=== PATIENT | female | born 2005 | race Hispanic/Latino ===

== ENCOUNTER 2024-03-18 17:17 | Emergency (ER) | payer BC ==
--- OUTSIDE RECORDS SUMMARY | 2024-03-18 17:21 | XMS REPORT | Continuity of Care Document ---
Author Name Unknown Address [address] [place] [address] 1 [address] [place], [place] [address] [place] [address] [facility] Address [address] [facility] 1 [address] [place] [address] Care Team Providers Care Supervisor [employer] Name Role Phone PCP, PATIENT DOES NOT HAVE A Primary Care Physic nikki Unavailable LISA WESLEY Attending Clinician Unavailable Melvin_Mariam Attending Clinician Unavailable Adalgisa_Angelica Attending Clinician Unavailable JENNIFER_ANTONIETA Attending Clinician Unavailab le Melvin_Mariam Admitting Clinician Unavailable Jessicawhector_Angelica Admitting Clinician Unavailable JENNIFER_ANTONIETA Admitting Clinician Unavailab le Payers Payer Name Policy Type Policy Number Effective Date Expirati on Date Source [facility] [id number] 2018 00:00[facility] ([facility] [id number] 2018 00:00:00 Problems Condition Name Condition Details Condition Category Status Onset Date Resolution Date Last Treatment Date Treating Clinician Comments Source Moderate recurrent major depression Moderate Recurrent Major Depression Problem Active 02-21 00:00: 00 [facility] Attention deficit hyperactiv ity disorder Attention Deficit Hyperactiv ity Disorder Problem Active 7- 00:00: 00 [facility] Allergies, Adverse Reactions, Alerts Allergy Name Allergy Type Status Severity Reaction(s) Onset Date Inactive Date Treating Clinician Comments Source AMOXICIL RAY DRUG INGREDI Active Unknown-Cmnt - 00:00: 00 [facility] Amoxicil ray Allergy to substanc e Active Moderate severity Rash 1- 00:00: 00 [facility] NO KNOWN ALLERGIE S Drug Class Active [facility] Social History Smoking Status Start Date Stop Date Source Never Smoker [facility] Medications Ordered Medication Name Filled Medication Name Start Date Stop Date Current Medication? Ordering Clinician Indication Dosage Frequency Signature (SIG) Comments Components Source Lo Loestrin Fe 1 mg-10 mcg (24)/10 mcg (2) tablet TAKE 1 TABLET BY MOUTH EVERY DAY Lo Loestrin Fe 1 mg-10 mcg (24)/10 mcg (2) tablet TAKE 1 TABLET BY MOUTH EVERY DAY No 1 Q1D Lo Loestrin Fe 1 mg-10 mcg (24)/10 mcg (2) tablet TAKE 1 TABLET BY MOUTH EVERY DAY [facility] sertraline 100 mg tablet TAKE 1 TABLET BY MOUTH EVERY DAY IN THE MORNING sertraline 100 mg tablet TAKE 1 TABLET BY MOUTH EVERY DAY IN THE MORNING No sertraline 100 mg tablet TAKE 1 TABLET BY MOUTH EVERY DAY IN THE MORNING [facility] bupropion HCl XL 150 mg 24 hr tablet, extended release TAKE 1 TABLET BY MOUTH DAILY bupropion HCl XL 150 mg 24 hr tablet, extended release TAKE 1 TABLET BY MOUTH DAILY No bupropion HCl XL 150 mg 24 hr tablet, extended release TAKE 1 TABLET BY MOUTH DAILY [facility] lisdexamfet amine 30 mg capsule Take 1 capsule every day by oral route in the morning. lisdexamfet amine 30 mg capsule Take 1 capsule every day by oral route in the morning. No lisdexamfe tamine 30 mg capsule Take 1 capsule every day by oral route in the morning. [facility] Deconex DMX 10 mg-17.5 mg-400 mg tablet TAKE 1 TABLET BY MOUTH EVERY 4 TO 6 HOURS NEEDED FOR COUGH OR CONGESTION Deconex DMX 10 mg-17.5 mg-400 mg tablet TAKE 1 TABLET BY MOUTH EVERY 4 TO 6 HOURS NEEDED FOR COUGH OR CONGESTION No Deconex DMX 10 mg-17.5 mg-400 mg tablet TAKE 1 TABLET BY MOUTH EVERY 4 TO 6 HOURS NEEDED FOR COUGH OR CONGESTION [facility] ondansetron 4 mg disintegrat ing tablet DISSOLVE 1 TABLET ON THE TONGUE EVERY 8 HOURS NEEDED ondansetron 4 mg disintegrat ing tablet DISSOLVE 1 TABLET ON THE TONGUE EVERY 8 HOURS NEEDED No ondansetro n 4 mg disintegra ting tablet DISSOLVE 1 TABLET ON THE TONGUE EVERY 8 HOURS NEEDED [facility] Program Immunizations Ordered Immunization Name Filled Immunization Name Date Status Comments Source influenza, injectable, quadrivalent, preservative free influenza, injectable, quadrivalent, preservative free Unknown [facility] meningococcal B, recombinant meningococcal B, recombinant Unknown Completed [facility] MCV4, unspecified formulation MCV4, unspecified formulation Unknown Completed [facility] influenza, injectable, quadrivalent influenza, injectable, quadrivalent Unknown Completed [facility] HPV9 HPV9 Unknown Completed [facility] Td(adult) unspecified formulation - ML Td(adult) unspecified formulation - ML Unknown Completed [facility] Tdap Tdap Unknown Completed [facility] influenza, live, intranasal, quadrivalent - ML influenza, live, intranasal, quadrivalent - ML Unknown Completed [facility] varicella varicella Unknown Completed [facility] IPV IPV Unknown Completed [facility] MMR MMR Unknown Completed [facility] DTaP, 5 pertussis antigens DTaP, 5 pertussis antigens Unknown Completed [facility] Hep A, ped/adol, 2 dose Hep A, ped/adol, 2 dose Unknown Completed [facility] pneumococcal conjugate PCV 7 pneumococcal conjugate PCV 7 Unknown Completed [facility] Hib (PRP-T) Hib (PRP-T) Unknown Completed [facility] DTaP-Hep B-IPV DTaP-Hep B-IPV Unknown [facility] Hep B, adolescent or pediatric Hep B, adolescent or pediatric Unknown Completed [facility] Vital Signs Vital Name Observation Time Observation Value Comments S ource BP Systolic 2023-08-29 00:00:00 139 mm[Hg] [facility] Height 2023-08-29 00:00:00 62 [in_i] [facility] BMI (Body Mass Index) 2023-08-29 00:00:00 28.9 kg/m2 [facility] Body Weight 2023-08-29 00:00:00 158 [lb_av] [facility] BP Diastolic 2023-08-29 00:00:00 81 mm[Hg] [facility] Height 2023-03-30 00:00:00 62 [in_i] [facility] BP Systolic 2023-03-30 00:00:00 133 mm[Hg] [facility] BP Diastolic 2023-03-30 00:00:00 77 mm[Hg] [facility] BMI (Body Mass Index) 2023-03-30 00:00:00 27.6 kg/m2 [facility] Body Weight 2023-03-30 00:00:00 151 [lb_av] [facility] BP Diastolic 2023-01-26 00:00:00 83 mm[Hg] [facility] Height 2023-01-26 00:00:00 62 [in_i] [facility] BMI (Body Mass Index) 2023-01-26 00:00:00 26.2 kg/m2 [facility] BP Systolic 2023-01-26 00:00:00 143 mm[Hg] [facility] Body Weight 2023-01-26 00:00:00 143 [lb_av] [facility] BP Diastolic 2022-12-22 00:00:00 73 mm[Hg] [facility] Height 2022-12-22 00:00:00 62 [in_i] [facility] BMI (Body Mass Index) 2022-12-22 00:00:00 26.5 kg/m2 [facility] BP Systolic 2022-12-22 00:00:00 117 mm[Hg] [facility] Body Weight 2022-12-22 00:00:00 145 [lb_av] [facility] BP Diastolic 2022-07-07 00:00:00 65 mm[Hg] [facility] Height 2022-07-07 00:00:00 62 [in_i] [facility] BMI (Body Mass Index) 2022-07-07 00:00:00 24.1 kg/m2 [facility] BP Systolic 2022-07-07 00:00:00 111 mm[Hg] [facility] Body Weight 2022-07-07 00:00:00 2112 [oz_av] [facility] BP Diastolic 2022-04-13 00:00:00 79 mm[Hg] [facility] Height 2022-04-13 00:00:00 62 [in_i] [facility] BMI (Body Mass Index) 2022-04-13 00:00:00 24.1 kg/m2 [facility] BP Systolic 2022-04-13 00:00:00 122 mm[Hg] [facility] Body Weight 2022-04-13 00:00:00 132 [lb_av] [facility] BP Diastolic 2022-04-11 00:00:00 51 mm[Hg] [facility] Height 2022-04-11 00:00:00 62 [in_i] [facility] BMI (Body Mass Index) 2022-04-11 00:00:00 24.3 kg/m2 [facility] BP Systolic 2022-04-11 00:00:00 111 mm[Hg] [facility] Body Weight 2022-04-11 00:00:00 2128 [oz_av] [facility] BP Diastolic 2022-02-02 00:00:00 82 mm[Hg] [facility] Height 2022-02-02 00:00:00 62 [in_i] [facility] BMI (Body Mass Index) 2022-02-02 00:00:00 21.8 kg/m2 [facility] BP Systolic 2022-02-02 00:00:00 123 mm[Hg] [facility] Body Weight 2022-02-02 00:00:00 1904 [oz_av] [facility] BP Diastolic 2021-09-08 00:00:00 66 mm[Hg] [facility] Height 2021-09-08 00:00:00 61 [in_i] [facility] BMI (Body Mass Index) 2021-09-08 00:00:00 22.5 kg/m2 [facility] BP Systolic 2021-09-08 00:00:00 111 mm[Hg] [facility] Body Weight 2021-09-08 00:00:00 1904 [oz_av] [facility] BP Diastolic 2021-05-04 00:00:00 85 mm[Hg] [facility] Height 2021-05-04 00:00:00 63 [in_i] [facility] BMI (Body Mass Index) 2021-05-04 00:00:00 22.7 kg/m2 [facility] BP Systolic 2021-05-04 00:00:00 124 mm[Hg] [facility] Body Weight 2021-05-04 00:00:00 2048 [oz_av] [facility] Encounters Start Date/Time End Date/Time Encounter Type Admission Type Attending [facility] Care Facility Care Department Encounter ID Source 2024-03-18 15:40:00 2024-03-18 15:40:00 Outpatient LISA GALLARDO [facility] [id number] [facility] 2024-02-27 00:00:00 2024-02-27 00:00:00 Juan Pablo Shankar MD: [address] [place] [address] , Ph. [phone] --2007 [facility] [id number] [facility] 2023-11-28 00:00:00 2023-11-28 00:00:00 Juan Pablo Shankar MD: [address] [address] , Ph. [phone]) --2007 [facility] [id number] [facility] 2023-10-28 00:00:00 2023-10-28 00:00:00 Outpatient Ryman_Erin [facility] [id number] [facility] 2023-09-25 00:00:00 2023-09-25 00:00:00 Outpatient Ryman_Josein [facility] [id number] [facility] 2023-09-21 00:00:00 2023-09-21 00:00:00 Outpatient Ryman_Josein [facility] [id number] [facility] 2023-08-29 00:00:00 2023-08-29 00:00:00 Juan Pablo Shankar MD: [address] [place] [address] , Ph. ([phone]) --2007 [facility] [id number] [facility] 2023-08-28 00:00:00 2023-08-28 00:00:00 Outpatient Ryman_Erin [facility] [id number] [facility] 2023-05-30 00:00:00 2023-05-30 00:00:00 Juan Pablo Shankar MD: [address], [place] [address] , Ph. [phone] [facility] - [facility] - [facility] B[facility] [id number] [facility] 2023-05-28 00:00:00 2023-05-28 00:00:00 Outpatient Ryman_Erin [facility] [id number] [facility] 2023-05-28 00:00:00 2023-05-28 00:00:00 Outpatient Ryman_Erin [facility] [id number] [facility] 2023-03-30 00:00:00 2023-03-30 00:00:00 Outpatient Ryman_Erin [facility] [id number] [facility] 2023-03-30 00:00:00 2023-03-30 00:00:00 Outpatient Ryman_Erin [facility] [id number] [facility] 2023-03-30 00:00:00 2023-03-30 00:00:00 Lanie Mata, RESOLUTION EXPERT: [address], [place] [address] , Ph. 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 [phone] [facility] B[facility] [id number] [facility] 2023-01-24 00:00:00 2023-01-24 00:00:00 Outpatient Ryman_Erin [facility] [id number] [facility] 2023-01-24 00:00:00 2023-01-24 00:00:00 Outpatient Ryman_Erin [facility] [id number] [facility] 2023-01-24 00:00:00 2023-01-24 00:00:00 Outpatient Ryman_Erin [facility] [id number] [facility] 2023-01-02 00:00:00 2023-01-02 00:00:00 Outpatient Ryman_Erin [facility] [id number] [facility] 2023-01-01 00:00:00 2023-01-01 00:00:00 Outpatient Ryman_Erin [facility] [id number] [facility] 2022-12-22 00:00:00 2022-12-22 00:00:00 Outpatient Ryman_Erin [facility] [id number] [facility] 2022-12-22 00:00:00 2022-12-22 00:00:00 Outpatient Ryman_Erin [facility] [id number] [facility] 2022-12-22 00:00:00 2022-12-22 00:00:00 Juan Pablo Shankar MD: [address], [place] [address] , Ph. [phone] [facility] [place] [facility] - [facility] B.[facility] [id number] [facility] 2022-12-20 00:00:00 2022-12-20 00:00:00 Outpatient Rynicole_in [facility] [id number] [facility] 2022-12-16 00:00:00 2022-12-16 00:00:00 Outpatient Rynicole_in [facility] [id number] [facility] 2022-11-10 00:00:00 2022-11-10 00:00:00 Outpatient Melvin_in [facility] [id number] [facility] 2022-07-08 00:00:00 2022-07-08 00:00:00 Outpatient Ugwuzor_Chi nyere [facility] [id number] [facility] 2022-07-07 00:00:00 2022-07-07 00:00:00 Outpatient Ugwuzor_Chi nyere [facility] [id number] [facility] 2022-07-07 00:00:00 2022-07-07 00:00:00 Mariam Charles MSN: [address], [place] [address] , Ph. [facility] [place] [facility] - [facility] [id number] [facility] 2022-04-13 00:00:00 2022-04-13 00:00:00 Outpatient Ugwuzor_Chi nyere [facility] [id number] [facility] 2022-04-13 00:00:00 2022-04-13 00:00:00 Lanie Mata, RESOLUTION EXPERT: [address], [place] [address] , Ph. 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 [facility] - [facility] [facility] - [facility] Pediatric [id number] [facility] 2022-02-15 12:08:00 2022-02-15 12:08:00 Outpatient Ugwuzor_Chi nyere [facility] [id number] [facility] 2022-02-14 12:55:00 2022-02-14 12:55:00 Outpatient Ugwuzor_Chi nyere [facility] [id number] [facility] 2022-02-02 02:15:00 2022-02-02 02:15:00 Outpatient Ugwuzor_Chi nyere [facility] [id number] [facility] 2022-02-02 00:00:00 2022-02-02 00:00:00 Mariam Charles MSN: [address], [place] [address] , Ph. [facility] Pediatric [id number] [facility] 2021-09-08 11:52:00 2021-09-08 11:52:00 Outpatient Ugwuzor_Chi nyere [facility] [id number] [facility] 2021-09-08 00:00:00 2021-09-08 00:00:00 Angelica Diana MD: [address] [place] [address] , [facility] [facility] Pediatric [id number] [facility] 2021-05-04 04:58:00 2021-05-04 04:58:00 Outpatient Ugwuzor_Chi nyere [facility] [id number] [facility] 2021-05-04 04:58:00 2021-05-04 04:58:00 Outpatient Ugwuzor_Chi nyere [facility] [id number] [facility] 2021-05-04 00:00:00 2021-05-04 00:00:00 Mariam Charles MSN: [address], [place] [address] , Ph. [facility] Pediatric [id number] [facility] 2021-04-12 02:34:00 2021-04-12 02:34:00 Outpatient Ugwuzor_Chi nyere [facility] [id number] [facility] 2020-06-24 01:15:00 2020-06-24 01:15:00 Outpatient SEBASTIAN_K UNJAMMA [facility] [id number] [facility] 2020-06-24 00:00:00 2020-06-24 00:00:00 Antonieta Woody MD: [address], [place] [address] , [facility]. [facility] Pediatric [id number] [facility] 2019-11-28 03:04:00 2019-11-28 03:04:00 [facility] [id number] [facility] 2019-04-23 00:00:00 2019-04-23 00:00:00 Antonieta Woody MD: [address] [place] [address] , Ph. [facility] Pediatric [id number] [facility] Results Test Description Test Time Test Comments Results Result Co mments Source [facility] Programpregnancy test, [id number] 14:03:00* Test Item Value Reference Range Interpretation Comme nts HCG (test code = HCG) negative [facility] Programpregnancy test, [id number] 14:03:00* Test Item Value Reference Range Interpretation Comme nts HCG (test code = HCG) negative [facility] ProgramInfluenza virus A and B and SARS-CoV-2 (COVID-19) and Respiratory syncytial virus RNA panel - Respiratory specimen by PHIL with probe [id number] 08:26:26* Test Item Value Reference Range Interpretation Comme nts Influenza A (test code = Inf luenza A) negative Influenza B (test code = Inf luenza B) negative RSV (test code = RSV) negative Sars Cov 2 (test code = Sars Cov 2) negative [facility] Outreach Programrapid strep group A, [id number] 08:23:47* Test Item Value Reference Range Interpretation Comme nts Strep (test code = Strep) negative [facility] Programpregnancy test, [id number] 09:04:00* Test Item Value Reference Range Interpretation Comme nts HCG (test code = HCG) negative [facility] Programrapid strep group A, [id number] 16:06:08* Test Item Value Reference Range Interpretation Comme nts Strep (test code = Strep) negative [facility] Outreach Programrapid strep group A, [id number] 16:06:08* Test Item Value Reference Range Interpretation Comme nts Strep (test code = Strep) negative [facility] Programrapid strep group A, [id number] 12:13:33* Test Item Value Reference Range Interpretation Comme nts Strep (test code = Strep) negative [facility] Programrapid strep group A, [id number] 12:13:33* Test Item Value Reference Range Interpretation Comme nts Strep (test code = Strep) negative [facility] ProgramInfluenza virus A and B and SARS-CoV-2 (COVID-19) and Respiratory syncytial virus RNA panel - Respiratory specimen by PHIL with probe [id number] 11:58:19* Test Item Value Reference Range Interpretation Comme nts Influenza A (test code = Inf luenza A) negative Influenza B (test code = Inf luenza B) negative RSV (test code = RSV) negative Sars Cov 2 (test code = Sars Cov 2) negative [facility] Programrapid flu (A+B)2021-05-04 15:12:14* Test Item Value Reference Range Interpretation Comme nts Flu (test code = Flu) negative [facility] ProgramHeterophile Ab [Presence] in Blood by [id number] 15:11:59* Test Item Value Reference Range Interpretation Comme nts [place] (test code = [place]) negative [facility] Programrapid strep group A, [id number] 15:11:50* Test Item Value Reference Range Interpretation Comme nts Strep (test code = Strep) negative [facility] Program
[2024-03-18] MEDS ORDERED: NA CHLORIDE 0.9% 1,000 ML ONE (18:44)
[2024-03-18 18:52] LABS: Specific Gravity 1.006 (1.005-1.030); Urine Bilirubin NEGATIVE (Negative); Urine Blood Negative (Negative); Urine Clarity Clear (Clear); Urine Color Colorless (Yellow); Urine Glucose NEGATIVE (Negative); Urine Ketones NEGATIVE (Negative); Urine Microscopic Reflex YN NO UMIC; Urine Nitrite NEGATIVE (Negative); Urine Protein NEGATIVE (Negative); Urine Urobilinogen Normal (Normal); Urine pH 6.5 (5.0-7.0)
[2024-03-18 19:28] LABS: Absolute Basophils 0.1 K/uL (0-0.5); Absolute Lymphocytes (CBC) 2.1 K/uL (0.7-4.9); Absolute Monocytes 0.5 K/uL (0.1-1.3); Absolute Neutrophil 6.7 K/uL (1.8-8.0); Basophils % 0.7 % (0-1.3); Eosinophils % 0.4 % (0-4.4); Hematocrit 39.3 % (36.0-45.0); Hemoglobin 13.5 g/dL (12.0-15.0); Lymphocytes % 21.8 % (15.3-44.8); MCH 31.3 pg (27.0-35.0); MCHC 34.2 g/dL (32.0-36.0); MCV 91.5 fL (80-100); MPV 7.5 fL (7.6-11.3); Monocytes % 5.5 % (3.3-12.3); Neutrophils % 71.6 % (41.7-73.7); Platelets 377 thou/uL (152-406); Red Cell Distribution Width 14.5 % (12.1-15.2)
[2024-03-18 19:48] LABS: ALT/SGPT 21 U/L (13-56); Albumin 3.8 g/dL (3.4-5.0); Albumin/Globulin Ratio 1.1 (1.1-1.8); Alkaline Phosphatase 73 U/L (45-117); Anion Gap 8.9 mEq/L (5.0-15.0); BUN Blood Urea Nitrogen 10 mg/dL (7-18); Bicarbonate 26 mEq/L (21-32); Bilirubin Total 0.8 mg/dL (0.2-1.0); Globulin 3.6 g/dL (2.3-3.5); Glomerular Filtration Rate 78 ml/min (=/>90); Glucose Level 98 mg/dL (74-106); Lipase 21 U/L (13-75); Potassium 3.9 mEq/L (3.5-5.1); Protein, Total 7.4 g/dL (6.4-8.2); Sodium Level 139 mEq/L (136-145)
--- NOTE | 2024-03-18 19:54 | RAD REPORT ---
EXAM DESCRIPTION: CT - Abdomen Pelvis W Contrast - 03/18/2024 7:37 pm CLINICAL HISTORY: Abdominal pain COMPARISON: none. TECHNIQUE: Computed axial tomography of the abdomen pelvis was obtained. 100 cc Isovue-300 was admin istered intravenously. Oral contrast was not requested which limits evaluation of bowel and appendix All CT scans are performed using dose optimization technique as appropriate and may include automated exposure control or mA/KV adjustment according to patient size. FINDINGS: A small density within the gallbladder. Gallbladder wall does not appear thickened The liver, spleen, pancreas, adrenal and kidneys appear unremarkable. There is no evidence of diverticulitis. Normal appendix No adnexal mass IMPRESSION: Small density within the gallbladder may represent a stone or polyp.
[2024-03-18 19:56] LABS: AST/SGOT < 10 U/L (15-37)
--- NOTE | 2024-03-18 19:59 | ER ---
Nurse's Notes [facility] Name: Farideh Perez Age: 18 yrs Sex: Female : 2005 Arrival Date: 03/18/2024 Time: 17:17 Bed 15 Private MD: Diagnosis: Abdominal pain Presentation: 03/18 17:53 Chief complaint: Patient states: LLQ pain, sharp pain, started after dinner yesterday , iw +nausea, no vomiting, + diarrhea. Coronavirus screen: At this time, the client does not indicate any symptoms associated with coronavirus-19. Ebola Screen: No symptoms or risks identified at this time. Initial Sepsis Screen: Does the patient meet any 2 criteria? No. Patient's initial sepsis screen is negative. Does the patient have a suspected source of infection? No. Patient's initial sepsis screen is negative. Risk Assessment: Do you want to hurt yourself or someone else? Patient reports no desire to harm self or others. Onset of symptoms was March 17, 2024. 17:53 Method Of Arrival: Ambulatory iw 17:53 Acuity: RODRIGO 3 iw TECHNICAL SPECIALIST CYTOLOGY: 17:55 LMP 03/07/2024, unknown iw Historical: - Allergies: 17:54 Amoxicillin; iw - PMHx: 17:54 adhd; Depressive disorder; iw - PSHx: 17:54 None; iw - Immunization history:: Adult Immunizations unknown. - Infectious Disease History:: Denies. - Social history:: Smoking status: Patient denies any tobacco usage or history of. Screenin:45 [facility] ED Fall Risk Assessment (Adult) History of falling in the last 3 months, ph including since admission No falls in past 3 months (0 pts) Confusion or Disorientation No (0 pts) Intoxicated or Sedated No (0 pts) Impaired Gait No (0 pts) Mobility Assist Device Used No (0 pt) Altered Elimination No (0 pt) Score/Fall Risk Level 0 - 2 = Low Risk Oriented to surroundings, Maintained a safe environment, Hourly rounding (assess needs \T\ fall precautionary measures) done. Abuse screen: Denies threats or abuse. Denies injuries from another. Nutritional screening: No deficits noted. Tuberculosis screening: No symptoms or risk factors identified. Assessment: 19:03 General: Appears in no apparent distress. comfortable, well groomed, Behavior is calm, ph cooperative, appropriate for age. Pain: Complains of pain in left lower quadrant. Neuro: Level of Consciousness is awake, alert, obeys commands, Oriented to person, place, time, situation. Cardiovascular: Capillary refill < 3 seconds in bilateral fingers Patient's skin is warm and dry. Respiratory: Airway is patent Respiratory effort is even, unlabored. GI: Reports lower abdominal pain, diarrhea, nausea. Derm: Skin is pink, warm \T\ dry. 19:21 Reassessment: Patient appears in no apparent distress at this time. Patient and/or jb4 family updated on plan of care and expected duration. Pain level reassessed. Patient is alert, oriented x 3, equal unlabored respirations, skin warm/dry/pink. Vital Signs: 17:53 BP 134 / 85; Pulse 57; Resp 16; Temp 97.1; Pulse Ox 100% on R/A; Weight 65.77 kg; iw Height 5 ft. 1 in. ; Pain 3/10; 20:17 BP 120 / 79; Pulse 52; Resp 16; Pulse Ox 100% on R/A; jb4 17:53 Body Mass Index 27.40 (65.77 kg, 154.94 cm) - Percentile 88.7 % iw 17:53 Pain Scale: Adult iw ED Course: 17:21 Patient arrived in ED. mr 17:22 Ellen Shankar MD is Attending Physician. sp3 17:22 Raheem Flores PA is PHCP. cp 17:54 Triage completed. iw 17:55 Arm band placed on. iw 18:25 Nat Krause, RN is Primary Nurse. ph 18:45 Patient has correct armband on for positive identification. Bed in low position. Call ph light in reach. Side rails up X 1. Pulse ox on. NIBP on. Door closed. Noise minimized. 18:45 Test, Urine Sent. ph 18:45 Urinalysis w/ reflexes Sent. ph 19:18 No provider procedures requiring assistance completed. Initial lab(s) drawn, by , edith sent to lab. Inserted saline lock: 20 gauge in right antecubital area, using aseptic technique. Blood collected. 19:21 Provided Education on: plan of care. jb4 19:38 CT Abd/Pelvis - IV Contrast Only In Process Unspecified. EDMS 20:17 IV discontinued, intact, bleeding controlled, No redness/swelling at site. Pressure jb4 dressing applied. Administered Medications: 19:40 Drug: NS 0.9% IV 1000 ml IV at 1 bolus Per protocol; 1000 mL bolus Route: IV; Rate: 1 jb4 bolus; Site: right antecubital; 20:19 Follow up: Response: No adverse reaction; IV Status: Completed infusion; IV Intake: jb4 800ml ; Pt refused remaining volume Medication: 18:46 VIS not applicable for this client. ph Intake: 20:19 IV: 800ml; Total: 800ml. jb4 Outcome: 19:58 Discharge ordered by sp3 20:17 Discharged to home ambulatory, jb4 20:17 Condition: stable 20:17 Discharge instructions given to patient, Instructed on discharge instructions, follow up and referral plans. medication usage, Demonstrated understanding of instructions, follow-up care, medications, Prescriptions given X 1, 20:18 Patient left the ED. jb4 Signatures: Dispatcher [employer] EDMS PalacioKaylen, Reg Reg mr Cyndi Thao, RN Nat Valerio RN RN ph Page, Corey, PA PA cp Bryson, James, RN RN jb4 Ellen Shankar MD MD sp3
--- NOTE | 2024-03-18 19:59 | EDPHYS ---
Physician Documentation [facility] Name: Farideh Perez Age: 18 yrs Sex: Female : 2005 Arrival Date: 03/18/2024 Time: 17:17 Bed 15 Private MD: ED Physician Ellen Shankar HPI: 03/18 19:07 This 18 yrs old Female presents to ER via Ambulatory with complaints of sp3 Abdominal Pain. 19:07 18-year-old female with history of ADHD now presents to the ED with chief complaint sp3 periumbilical pain since yesterday evening coupled with nonbloody nonmucous diarrhea with 3 episodes today. Patient initially went to urgent care where they were sent here for further evaluation and probable CT scan. She denies any other symptoms including fever, vomiting, headache, neck pain, chest pain, shortness of breath, back pain, flank pain, dysuria, gross hematuria, STEEL ERECTING PUSHER symptoms, known sick contacts, travel history, potential bad food, or any other signs or symptoms on ROS at this time.. 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 - Infectious Disease History:: Denies. - Social history:: Smoking status: Patient denies any tobacco usage or history of. ROS: 19:10 Constitutional: Negative for fever, chills, and weight loss, Eyes: Negative for injury, sp3 pain, redness, and discharge, ENT: Negative for injury, pain, and discharge, Neck: Negative for injury, pain, and swelling, Cardiovascular: Negative for chest pain, palpitations, and edema, Respiratory: Negative for shortness of breath, cough, wheezing, and pleuritic chest pain, Back: Negative for injury and pain, : Negative for injury, bleeding, discharge, and swelling, MS/Extremity: Negative for injury and deformity, Skin: Negative for injury, rash, and discoloration, Neuro: Negative for headache, weakness, numbness, tingling, and seizure, Psych: Negative for depression, anxiety, suicide ideation, homicidal ideation, and hallucinations, Allergy/Immunology: Negative for hives, rash, and allergies, Endocrine: Negative for neck swelling, polydipsia, polyuria, polyphagia, and marked weight changes, Hematologic/Lymphatic: Negative for swollen nodes, abnormal bleeding, and unusual bruising, 19:10 All other systems are negative, Exam: 19:10 Constitutional: This is a well developed, well nourished patient who is awake, alert, sp3 and in no acute distress. Head/Face: Normocephalic, atraumatic. Eyes: Pupils equal round and reactive to light, extra-ocular motions intact. Lids and lashes normal. Conjunctiva and sclera are non-icteric and not injected. Cornea within normal limits. Periorbital areas with no swelling, redness, or edema. Neck: Trachea midline, no thyromegaly or masses palpated, and no cervical lymphadenopathy. Supple, full range of motion without nuchal rigidity, or vertebral point tenderness. No Meningismus. Chest/axilla: Normal chest wall appearance and motion. Nontender with no deformity. No lesions are appreciated. Cardiovascular: Regular rate and rhythm with a normal S1 and S2. No gallops, murmurs, or rubs. Normal PMI, no JVD. No pulse deficits. Respiratory: Lungs have equal breath sounds bilaterally, clear to auscultation and percussion. No rales, rhonchi or wheezes noted. No increased work of breathing, no retractions or nasal flaring. Back: No spinal tenderness. No costovertebral tenderness. Full range of motion. Skin: Warm, dry with normal turgor. Normal color with no rashes, no lesions, and no evidence of cellulitis. MS/ Extremity: Pulses equal, no cyanosis. Neurovascular intact. Full, normal range of motion. Neuro: Awake and alert, GCS 15, oriented to person, place, time, and situation. Cranial nerves II-XII grossly intact. Motor strength 5/5 in all extremities. Sensory grossly intact. Cerebellar exam normal. Normal gait. Psych: Awake, alert, with orientation to person, place and time. Behavior, mood, and affect are within normal limits. 19:10 Abdomen/GI: Patient with mild periumbilical pain without peritoneal signs, rebound or guarding., Vital Signs: 17:53 BP 134 / 85; Pulse 57; Resp 16; Temp 97.1; Pulse Ox 100% on R/A; Weight 65.77 kg; iw Height 5 ft. 1 in. ; Pain 3/10; 20:17 BP 120 / 79; Pulse 52; Resp 16; Pulse Ox 100% on R/A; jb4 17:53 Body Mass Index 27.40 (65.77 kg, 154.94 cm) - Percentile 88.7 % iw 17:53 Pain Scale: Adult iw MDM: 17:55 Patient medically screened. sp3 19:11 Data reviewed: vital signs, nurses notes, lab test result(s), radiologic studies. ED sp3 course: 18-year-old female with abdominal pain. Differential diagnosis includes foodborne illness, gastroenteritis, gastritis, colitis, appendicitis, biliary pathology, UTI/pyelonephritis spectrum, among others. Workup will include CT scan of the abdomen pelvis, laboratory work and UA hCG. If workup negative, we will safely discharge patient home. Current pain level 0-2/10 and patient declines any pain medication at this time. LMP was 2 weeks ago. I discussed the differential with mom and everybody is on board with the plan including probable discharge if workup negative.. 19:53 ED course: . sp3 19:57 ED course: CT scan of the abdomen pelvis negative for appendicitis any other sp3 significant abnormality. Small polyp probable in the gallbladder. Laboratory values are all negative and patient is not and does not have a UTI. Given patient's current clinical exam and normal vital signs, we will safely discharge patient home with supportive care and Bentyl prescription.. 03/18 17:56 Order name: CBC with Diff; Complete Time: 19:55 sp3 03/18 17:56 Order name: CMP; Complete Time: 19:57 sp3 03/18 17:56 Order name: Lipase; Complete Time: 19:57 sp3 03/18 17:56 Order name: Urinalysis w/ reflexes; Complete Time: 19:55 sp3 03/18 17:56 Order name: Test, Urine; Complete Time: 19:55 sp3 03/18 17:56 Order name: CT Abd/Pelvis - IV Contrast Only; Complete Time: 19:55 sp3 03/18 17:56 Order name: IV Saline Lock; Complete Time: 19:21 sp3 03/18 17:56 Order name: Labs collected and sent; Complete Time: 19:21 sp3 Administered Medications: 19:40 Drug: NS 0.9% IV 1000 ml IV at 1 bolus Per protocol; 1000 mL bolus Route: IV; Rate: 1 jb4 bolus; Site: right antecubital; 20:19 Follow up: Response: No adverse reaction; IV Status: Completed infusion; IV Intake: jb4 800ml ; Pt refused remaining volume Disposition Summary: 03/18/24 19:58 Discharge Ordered Notes: Location: Home sp3 Condition: Stable sp3 Diagnosis - Abdominal pain sp3 Followup: sp3 - With: Private Physician - When: Upon discharge from the Emergency Department - Reason: Continuance of care Discharge Instructions: - Discharge Summary Sheet sp3 - Abdominal Pain, Adult sp3 Forms: - Medication Reconciliation Form sp3 - Antibiotic Education sp3 - Prescription Opioid Use sp3 - Patient Portal Instructions sp3 - Leadership Thank You Letter sp3 Prescriptions: - dicyclomine 10 mg Oral capsule - take 2 capsules ORAL route 3 times per day As needed pain; 20 capsule; Refills: sp3 0, Product Selection Permitted Signatures: Dispatcher [employer] EDMS Cyndi Thao RN RN Nat Krause RN RN Farshad Ling RN RN jb4 Ellen Shankar MD MD sp3 Corrections: (The following items were deleted from the chart) 18:45 17:56 Crews ordered. sp3 ph 19:58 19:53 ED course: Patient will be signed out to nighttime physician Dr. Liang for sp3 final reevaluation and disposition.. sp3
[2024-03-18 20:44] VITALS: TEMP 97.1; O2SAT 100
[2024-03-18 20:46] VITALS: BP 120/79
== END 2024-03-18 20:18 | disposition home or self-care (01) ==
LOC: ER 17:17
DX: R10.33 Periumbilical pain (principal); R19.7 Diarrhea, unspecified
CPT/HCPCS: 85025; 36415; 81025; 81003; 83690; 80053; 74177; 96360; 99284; Q9967; J7030